=== PATIENT | female | born 1945 | race Caucasian/White ===

== ENCOUNTER 2017-11-01 08:01 | Emergency (ER) | payer MEDICARE, OTHER ==
[2017-11-01 08:05] VITALS: BMI 32.2
[2017-11-01 08:07] VITALS: BP 172/96; PULSE 78; RESP 17; TEMP 98.1; O2SAT 97
[2017-11-01] MEDS ORDERED: Sodium Chloride 0.9% 500 ML IV STA (08:39)
--- NOTE | 2017-11-01 09:02 | ED PDOC ---
HPI: Female Pain Time Seen by Provider: 11/01/17 08:32 Chief Complaint (Nursing): Female Genitourinary Chief Complaint (Provider): Dysuria and Hematuria History Per: Patient History/Exam Limitations: no limitations Onset/Duration Of Symptoms: Days (1 day ago) Current Symptoms Are (Timing): Still Present Additional Complaint(s): 72 yo female with a history of hypertension, presents to the ED complaining of dysuria and hematuria, onset of 1 day. She denies any fever, vomitng, and abdominal pain, but reports of feeling nauseous. Nayan Wylie Past Medical History Reviewed: Historical Data, Nursing Documentation, Vital Signs Vital Signs: Last Vital Signs Temp 98.1 F 11/01/17 08:05 Pulse 78 11/01/17 08:05 Resp 17 11/01/17 08:05 BP 172/96 H 11/01/17 08:05 Pulse Ox 97 11/01/17 08:05 - Medical History PMH: HTN, Hypothyroidism - Surgical History Other surgeries: ear surgery - Family History Family History: States: Unknown Family Hx - Social History Current smoker - smoking cessation education provided: No Ex-Smoker (has not smoked in the last 12 months): No Alcohol: None Drugs: Denies - Immunization History Hx Tetanus Toxoid Vaccination: No Hx Influenza Vaccination: Yes Hx Pneumococcal Vaccination: No - Home Medications Home Medications: Ambulatory Orders Medication Instructions Recorded Levothyroxine 125 acc PO DAILY 06/02/13 Nitrofurantoin Macrocrystals 100 mg PO BID #13 cap 11/01/17 [Macrobid] Phenazopyridine [Pyridium] 200 mg PO TID PRN #6 tab 11/01/17 - Allergies Allergies/Adverse Reactions: Allergies Allergy/AdvReac Type Severity Reaction Status Date / Time No Known Allergies Allergy Verified 11/01/17 08:20 Review of Systems ROS Statement: Except As Marked, All Systems Reviewed And Found Negative Constitutional: Negative for: Fever Gastrointestinal: Positive for: Nausea. Negative for: Vomiting, Abdominal Pain Genitourinary Female: Positive for: Dysuria, Hematuria Physical Exam - Reviewed Nursing Documentation Reviewed: Yes Vital Signs Reviewed: Yes - Physical Exam Appears: Positive for: Non-toxic, No Acute Distress Head Exam: Positive for: ATRAUMATIC Skin: Positive for: Normal Color, Warm Eye Exam: Positive for: Normal appearance, EOMI, PERRL ENT: Positive for: Normal ENT Inspection Neck: Positive for: Normal, Painless ROM, Supple Cardiovascular/Chest: Positive for: Regular Rate, Rhythm. Negative for: Murmur Respiratory: Positive for: Normal Breath Sounds. Negative for: Respiratory Distress Gastrointestinal/Abdominal: Positive for: Normal Exam, Soft. Negative for: Tenderness, Distended Back: Positive for: Normal Inspection Extremity: Positive for: Normal ROM. Negative for: Pedal Edema, Deformity Neurologic/Psych: Positive for: Alert, Oriented. Negative for: Motor/Sensory Deficits - Laboratory Results Result Diagrams: 11/01/17 09:20 11/01/17 09:20 - ECG O2 Sat by Pulse Oximetry: 97 (RA) Pulse Ox Interpretation: Normal Medical Decision Making Medical Decision Making: Time: --08:39 Impression: --UTI Plan: --labs --ED urine dip --labs --nitrofurantoin macrocrystals --IV Fluids --Zofran Inj 4mg IV --Urine Culture --urinalysis Reassess -- Scribe Attestation: Documented by Everette Desai acting as a scribe for Hollie Haynes MD. Disposition - Clinical Impression Clinical Impression: Urinary tract infection - Disposition Referrals: [facility] [Outside] Disposition: Routine/Home Disposition Time: 11:02 Condition: STABLE Prescriptions: Nitrofurantoin Macrocrystals [Macrobid] 100 mg PO BID #13 cap Phenazopyridine [Pyridium] 200 mg PO TID PRN #6 tab PRN Reason: Bladder Spasm Instructions: Urinary Tract Infection in Women (ED) Forms: [employer] ([place]ian) Print Language: [id number]
[2017-11-01 09:35] LABS: BASO # 0.1 K/uL (0.0-0.2); BASO % 0.4 % (0.0-2.0); EOS # 0.1 K/uL (0.0-0.7); EOS % 0.6 % (0.0-4.0); HEMOGLOBIN 13.3 g/dL (12.0-16.0); LYMPH # 1.3 K/uL (1.0-4.3); LYMPH % 9.1 % (20.0-40.0); MEAN CELL VOLUME 92.5 fl (81.0-99.0); MEAN CORPUSCULAR HEMOGLOBIN 30.1 pg (27.0-31.0); MEAN CORPUSCULAR HGB CONC 32.5 g/dL (33.0-37.0); MEAN PLATELET VOLUME 8.8 fl (7.2-11.7); MONO # 0.9 K/uL (0.0-0.8); MONO % 6.2 % (0.0-10.0); NEUT # 12.1 K/uL (1.8-7.0); NEUT % 83.7 % (50.0-75.0); NRBC % 0.1 % (0.0-0.0); PLATELET COUNT 248 K/uL (130-400); RBC 4.43 Mil/uL (3.80-5.20); RED CELL DISTRIBUTION WIDTH 15.2 % (11.5-14.5); WHITE BLOOD COUNT 14.5 K/uL (4.8-10.8)
[2017-11-01 09:44] LABS: ALB/GLOB RATIO 1.2 (1.0-2.1); ALBUMIN 4.3 g/dL (3.5-5.0); CALCIUM 9.3 mg/dL (8.4-10.2); GFR AFRICAN-AMERICAN > 60; GFR NON-AFRICAN AMERICAN > 60
[2017-11-01 09:56] LABS: URINE CLARITY BLOODY (Clear); URINE COLOR RED (YELLOW)
[2017-11-01 09:57] LABS: URINE BILIRUBIN SMALL (NEGATIVE); URINE BLOOD LARGE (NEGATIVE); URINE GLUCOSE (UA) NEG (Normal); URINE LEUKOCYTE ESTERASE TRACE Leu/uL (Negative); URINE NITRATE POSITIVE (NEGATIVE); URINE PROTEIN >=300 mg/dL (NEGATIVE); URINE UROBILINOGEN 0.2 mg/dL (0.2-1.0)
[2017-11-01 09:58] LABS: GRANULAR CAST 2 /lpf (0-1); SQUAMOUS EPITHIAL 3 /hpf (0-5); URINE BACTERIA MOD (<OCC)
[2017-11-01 09:59] LABS: ALT/SGPT 36 U/L (9-52); AST/SGOT 37 U/L (14-36); BLOOD UREA NITROGEN 22 mg/dl (7-17)
[2017-11-01 12:47] LABS: ANISOCYTOSIS SLIGHT; EOSINOPHIL 1 % (0-7); LYMPHOCYTE 9 % (20-50); MONOCYTE 6 % (0-10); NEUTROPHIL 84 % (42-75); PLATELET ESTIMATE NORMAL (NORMAL); TOTAL CELLS COUNTED 100
== END 2017-11-01 11:17 | disposition home or self-care (01) ==
LOC: H.ER 08:01
DX: N39.0 Urinary tract infection, site not specified (principal); E03.9 Hypothyroidism, unspecified; I10 Essential (primary) hypertension
CPT/HCPCS: 80053; 81003; 85025; 87086; 87181; 96360; 99282; J2405; J7040